=== PATIENT | male | born 1960 | race Caucasian/White ===

== ENCOUNTER 2018-08-28 16:18 | Outpatient (CLI) | payer OTHER ==
[2018-08-28 17:39] LABS: Hemoglobin 14.9 g/dL (14.0-18.0); Mean Corpuscular Volume 93.9 fL (78.0-98.0); Mean Platelet Volume 8.7 fL (7.4-10.4); Platelet Count 223 thou/uL (130-400); RBC Distribution Width 12.1 % (11.5-14.5); White Blood Cell (WBC) Count 6.5 thou/uL (4.8-10.8)
[2018-08-28 17:45] LABS: INR-International Normal Ratio 0.9; PTT 24.6 SEC (22.9-36.1); Prothrombin Time 12.6 SEC (12.0-14.7)
[2018-08-28 18:08] LABS: Anion Gap 11 mmol/L (10-20); BUN (Urea Nitrogen) 14 mg/dL (8.4-25.7); Calc. Creatinine Clearance 0 mL/min (70-130); Calcium 9.6 mg/dL (7.8-10.44); Carbon Dioxide 30 mmol/L (22-29); Chloride 101 mmol/L (98-107); Estimated GFR-MDRD 63; Glucose 100 mg/dL (70-105); Potassium 4.3 mmol/L (3.5-5.1); Sodium 138 mmol/L (136-145)
== END 2018-08-28 16:19 | disposition home or self-care (01) ==
LOC: LABBT 16:18
PROVIDERS: ATTEND Urology
DX: Z01.818 Encounter for other preprocedural examination (principal)
CPT/HCPCS: 80048; 81001; 85027; 85610; 85730; 87086

== ENCOUNTER 2018-09-08 09:10 | Day surgery (SDC) | payer OTHER ==
[2018-08-28 16:49] VITALS: BMI 28.5
[2018-09-08] MEDS ORDERED: Levofloxacin 500 mg/D5W 100 ml Premix Bag ONE (09:33)
[2018-09-08] MEDS ORDERED: cefTRIAXone\\ROCEPHIN 2 GM in Sodium Chloride 0.9% 100 ML IVPB SCH (09:45)
--- NOTE | 2018-09-08 10:37 | RAD ---
ABDOMEN ONE VIEW: History: 58-year-old male for pre-operative evaluation. FINDINGS: Bilateral ureteral stents in place. Questionable small opacity overlying the distal right stent which could represent a ureteral calculus. IMPRESSION: Bilateral ureteral stents. Small opacity overlying the distal right stent which could possibly repres ent a ureteral calculus although it may just represent an overlying phlebolith. POS: RACHEL
[2018-09-08] MEDS ORDERED: Iothalamate Meglumine 60% 50 ML VIAL FS ONE (10:58)
[2018-09-08] MEDS ORDERED: Fentanyl 100 MCG/2 ML VIAL ONE (11:06)
[2018-09-08] MEDS ORDERED: Phenazopyridine HCl 97.5 MG TABLET ONE ×2 (12:46)
[2018-09-08] MEDS ORDERED: Oxybutynin 5 MG TAB ONE (12:46)
[2018-09-08] MEDS ORDERED: Tamsulosin HCl 0.4 MG CAP ONE (12:47)
--- NOTE | 2018-09-08 12:57 | OP ---
DATE OF PROCEDURE: 09/08/2018 PREOPERATIVE DIAGNOSES: Bilateral ureteral calculi, bilateral nephrolithiasis status post bilateral stent at [place] while working out of area. Stone dimensions: Right 3 x 6 mm ureterovesical juncti on stone, right renal calculi x2, 3 mm, 4 mm; 5 x 4 mm left mid ureteral stone at the level of L4, 2 mm, left renal calculi. POSTOPERATIVE DIAGNOSES: Bilateral ureteral calculi, bilateral nephrolithiasis status post bilateral stent at [place] while working out of area. Stone dimensions: Right 3 x 6 mm ureterovesical junct ion stone, right renal calculi x2, 3 mm, 4 mm; 5 x 4 mm left mid ureteral stone at the level of L4, 2 mm, left renal calculi. PROCEDURES PERFORMED: Cystoscopy, bilateral retrograde pyelogram, bilateral 6 x 28 double-J ureteral stent exchange, bilateral rigid ureteroscopy diagnostic, flexible ureteroscopy, pyeloscopy, basket e xtraction and laser lithotripsy of ureteral renal calculi. SURGEON: Viridiana Nunez D.O. ANESTHESIA: General. COMPLICATIONS: None apparent. SPECIMEN: Ureteral calculi for stone analysis. DISPOSITION: To recovery room in stable condition. INDICATIONS FOR THE PROCEDURE AND HISTORY: Mr. Alcaraz is a pleasant 58-year-old male well known to me, he initially presented with elevated PSA, however, it decreased to baseline and is on observation . He was working out of area in [place], underwent bilateral ureteral stent placement in [facility] due to renal insufficiency, bilateral flank discomfort, found to have stone dimensions as abo ve. He presented back to [facility] to proceed with ureteroscopy, laser lithotripsy. Ri sks, complications and indications were reviewed with the patient in detail including, but not limite d to, bleeding, pain, infection, injury to adjacent organs, urosepsis, stricture formation, possible secondary procedure, injury to ureteral renal bladder injury reviewed and all questions were answered to their satisfaction, they desired to proceed. DESCRIPTION OF THE PROCEDURE: After an informed consent was signed, the patient was taken to the ope rating room, placed in a dorsal lithotomy position with the genital area prepped and draped in the ua surgical sterile fashion. A 21-Slovenian cystoscope was utilized for cystoscopy which demonstrated normal anterior, posterior urethra. The prostatic urethra demonstrated coapting lateral lobes with h igh median bar, mild to moderately obstructing. The bladder was entered which demonstrated no eviden ce of intravesical median lobe. The UO's are well away from the bladder neck, approximately 5 mm. B ilateral ureteral stents are in good position and we proceeded to perform right ureteroscopy first. The ureteral stent was removed to the level of the meatus; however, I was unable to feed the wire thr ough the stent; therefore, the stent was completely removed and a 0.35 sensor wire was placed into th e right collecting system. Retrograde pyelogram demonstrated proper placement. The stone was in the distal intramural ureter and we were able to successfully basket this and rendered free atraumatical ly. At this time, a 10 Slovenian dual-lumen access sheath was placed over the safety wire and a retrogr mary jane pyelogram was performed and a second safety wire, 0.35 Super Stiff was sent. A 11/13-Slovenian x 46 cm navigator was able to be passed without difficulty and we passed this under guidance with a Super Stiff wire. Pyeloscopy was performed demonstrating multiple Sammy plaques. There were 2-3 mm sto ne adherent to the renal papilla which I lasered free and laser lithotripsy. There was a second nidu s in the mid pole laser lithotripsied and rendered free. The residual stones were too small to baske t or laser lithotripsy and they were quite small. As the stone is free from the right collecting and the ureteral system, a 6 x 28 double-J ureteral stent was passed into the right collecting system ov er the safety wire. All wires were removed from the right collecting system and the ureter was stone free. At this time, we proceeded to perform the same maneuver on the left side. The left ureteral stent was removed and a 0.35 sensor wire was placed into the left upper pole. A rigid ureteroscope w as advanced and we did find a ureteral stone at the level of the S3-4 ureter. We laser lithotripsied the stone and basket extracted the stone atraumatically. We then performed a pyeloscopy using a fle xible ureteroscope. Using a 10-Slovenian dual-lumen access sheath, we passed a second wire and again a 11/13-Slovenian x 46 cm navigator was passed without difficulty. There was tiny stone adherent to the r enal papillae in the upper pole and these were laser lithotripsied complete to dust. We surveyed the ureter, which demonstrated no evidence of ureteral stone nidus. There was no evidence of ureteral i njury bilaterally. A 6 x 28 double-J ureteral stent was passed in the left upper pole and bladder wa s completely emptied and he tolerated the procedure well. He will follow up with me next at 8:00 a.m. for cystoscopy, bilateral stent pull as there is endoscopic clearance. He is discharged w ith Flomax #[phone], ciprofloxacin x5 days in which he will take 1:00 a.m. of the followup appointment for cystoscopy stent pull, [place], RUY p.r.n., [place] 5/325 #[id number] is provided.
--- NOTE | 2018-09-08 15:07 | RAD ---
RETROGRADE URETEROGRAM WITH INTRAOPERATIVE FLUOROSCOPY: HISTORY: Ureteral obstruction. FINDINGS: Intraoperative fluoroscopy was provided for a retrograde study, as performed by Dr. Nunez. Spo t fluoroscopic images show bilateral ureteral stents in good radiographic position. POS: RACHEL
[2018-09-08] MEDS ORDERED: Lidocaine 1% PF 5 ML VIAL ONE (15:29)
[2018-09-08] MEDS ORDERED: Dexamethasone 20 MG/5 ML VIAL ONE (15:29)
[2018-09-08] MEDS ORDERED: Ondansetron PF 4 MG/2 ML Vial ONE (15:29)
[2018-09-08] MEDS ORDERED: Glycopyrrolate 0.2 MG/ML 5 ML SYRINGE ONE (15:29)
[2018-09-08] MEDS ORDERED: PROPOFOL 200 MG/20 ML VIAL ONE (15:29)
[2018-09-12 10:21] LABS: CA Oxalate Monohydrate 95 % (.); Color Brown (.); Stone Size 6x3x3 mm (.); Stone Weight 46.5 mg (.)
== END 2018-09-08 14:39 | disposition home or self-care (01) ==
LOC: SDC 09:10
PROVIDERS: ATTEND Urology
PROC: 0T788DZ Dilation of Bilateral Ureters with Intraluminal Device, Via Natural or Artificial Opening Endoscopic (ICD-10-PCS; principal; 2018-09-08)
PROC: 0TF38ZZ Fragmentation in Right Kidney Pelvis, Via Natural or Artificial Opening Endoscopic (ICD-10-PCS; principal; 2018-09-08)
PROC: 0TF68ZZ Fragmentation in Right Ureter, Via Natural or Artificial Opening Endoscopic (ICD-10-PCS; principal; 2018-09-08)
PROC: 0TF78ZZ Fragmentation in Left Ureter, Via Natural or Artificial Opening Endoscopic (ICD-10-PCS; principal; 2018-09-08)
PROC: 0TF48ZZ Fragmentation in Left Kidney Pelvis, Via Natural or Artificial Opening Endoscopic (ICD-10-PCS; principal; 2018-09-08)
DX: N20.2 Calculus of kidney with calculus of ureter (principal); I10 Essential (primary) hypertension; E78.00 Pure hypercholesterolemia, unspecified; N52.9 Male erectile dysfunction, unspecified; Z79.899 Other long term (current) drug therapy; Z88.1 Allergy status to other antibiotic agents; Z88.8 Allergy status to other drugs, medicaments and biological substances
CPT/HCPCS: 74018; 74420; 82365; 88300; C1758; C1769; J0696; J1100; J1956; J2001; J2405; J2704; J3010; J7050; Q9961

== ENCOUNTER 2019-09-10 08:24 | Outpatient (CLI) | payer OTHER ==
--- NOTE | 2019-09-10 08:48 | ULT ---
ULTRASOUND RETROPERITONEUM COMPLETE: (RENAL) DATE: 09/10/2019 HISTORY: 59-year-old male with calculus of kidney FINDINGS: The right kidney measures 11 x 4 x 5.5 cm. The left kidney measures 11.5 x 4.5 x 5.5 cm. Both kidneys have normal parenchymal echogenicity. There is no hydronephrosis. No moderate sized or large renal cystic or solid renal lesion is identified. The urinary bladder is almost empty and therefore difficult to evaluate (25 mL) IMPRESSION: normal sonographic appearance of the kidneys.
--- NOTE | 2019-09-10 08:52 | RAD ---
Exam: One view COMPARISON: 09/08/2018 FINDINGS: Interval removal of bilateral ureteral stents. Nonspecific bowel gas pattern. No suspicious densities in the abdomen or pelvis. No radiographic evid ence of nephrolithiasis or ureterolithiasis. No pneumoperitoneum on this supine projection IMPRESSION: 1. Nonspecific bowel gas pattern. 2. Interval removal of bilateral ureteral stents. No radiographic evidence of nephrolithiasis or uret erolithiasis.
== END 2019-09-10 08:25 | disposition home or self-care (01) ==
LOC: BICULT 08:24
PROVIDERS: ATTEND Urology
DX: N20.0 Calculus of kidney (principal)
CPT/HCPCS: 74018; 76770

== ENCOUNTER 2020-07-05 10:26 | Outpatient (CLI) | payer OTHER ==
--- NOTE | 2020-07-05 10:45 | RAD ---
EXAM: XR Abdomen 1 View/KUB PROVIDED CLINICAL HISTORY: Nephrolithiasis COMPARISON: 09/10/2019 FINDINGS: No suspicious calcifications are seen overlying either renal collecting system or along the course of either ureter. Bowel gas pattern is nonspecific. No interval change from prior study. IMPRESSION: Stable abdomen without calcifications seen overlying the renal collecting systems or along the course of either ureter.
== END 2020-07-05 10:27 | disposition home or self-care (01) ==
LOC: BICRAD 10:26
PROVIDERS: ATTEND Urology
DX: N20.0 Calculus of kidney (principal)
CPT/HCPCS: 36415; 74018; 81001; G0103

== ENCOUNTER 2020-07-21 07:36 | Outpatient (CLI) | payer OTHER ==
--- NOTE | 2020-07-21 08:04 | RAD ---
TRACEY SINUS: DATE: 07/21/2020. PROVIDED CLINICAL HISTORY: MRI clearance, history of welding. FINDINGS: There is no evidence for metallic foreign body in the region of the orbits. IMPRESSION: As above. POS: OFF
--- NOTE | 2020-07-21 09:50 | MRI ---
MRI LEFT KNEE: DATE: 07/21/2020. PROVIDED CLINICAL HISTORY: Left knee pain. FINDINGS: The anterior cruciate ligament, posterior cruciate ligament, medial collateral ligament, and lateral collateral ligamentous complex demonstrate an intact MR appearance, as does the extensor mechanism. The medial and lateral menisci demonstrate no evidence for tear. There is lateral tracking of the patella and lateral patellar tilt. TT-T2 distance is about 15 mm. There is no patella angelo evident. There is advanced articular cartilage loss involving the lateral a spects of the femoral trochlea with subjacent subcortical signal alteration. Similar changes are see n involving the median ridge and lateral facet of the patella. The femorotibial articular cartilage appears preserved. There is a moderate knee joint effusion with moderate Cardona's cyst. No focal concerning regional marrow or muscular signal abnormality apparent. IMPRESSION: 1. Advanced patellofemoral articular chondrosis. 2. Moderate knee joint effusion with Cardona's cyst. POS: OFF
== END 2020-07-21 07:37 | disposition home or self-care (01) ==
LOC: BICMRI 07:36
PROVIDERS: ATTEND Orthopaedic Surgery
DX: M17.12 Unilateral primary osteoarthritis, left knee (principal); M23.92 Unspecified internal derangement of left knee; M25.462 Effusion, left knee; M71.22 Synovial cyst of popliteal space [Baker], left knee
CPT/HCPCS: 70210